=== PATIENT | male | born 1995 | race Caucasian/White ===

== ENCOUNTER 2024-02-16 17:41 | Emergency (ER) | payer OTHER ==
[~2024-02-16] VITALS: Ht 180.3 cm; Wt 80.0 kg
[2024-02-16 17:44] VITALS: O2SAT 100
[2024-02-16] MEDS ORDERED: ACETAMINOPHEN 325MG TABLET PO ONE (18:45)
[2024-02-16] MEDS ORDERED: IBUPROFEN 800MG TABLET PO ONE (18:45)
[2024-02-16] MEDS: HYDROCODONE/ACETAMINOPHEN 7.5/325MG TABLET PO ONE (20:22)
[2024-02-16] MEDS: ACETAMINOPHEN 325MG TABLET PO NR (20:23)
[2024-02-16] MEDS: IBUPROFEN 800MG TABLET PO NR (20:32)
[2024-02-16] MEDS ORDERED: IBUP-1525 MT (21:05)
[2024-02-16] MEDS ORDERED: TOPUD MT (21:05)
[2024-02-16] MEDS ORDERED: BACI28OI9 TP (21:07)
[2024-02-16 22:58] VITALS: BP 110/58; PULSE 88; RESP 19; TEMP 98.8
== END 2024-02-16 23:05 | disposition home or self-care (01) ==
LOC: ER 17:41
DX: S82.491A Other fracture of shaft of right fibula, initial encounter for closed fracture (principal); S80.211A Abrasion, right knee, initial encounter; I10 Essential (primary) hypertension; F90.9 Attention-deficit hyperactivity disorder, unspecified type; W19.XXXA Unspecified fall, initial encounter; Y93.89 Activity, other specified; Y92.89 Other specified places as the place of occurrence of the external cause; Y99.8 Other external cause status
CPT/HCPCS: 73562; 73590; 29515; 99284; Z7610 ×2